=== PATIENT | male | born 1965 | race Caucasian/White ===

== ENCOUNTER 2017-05-31 15:03 | Inpatient (IN) | payer MEDICARE ==
--- NOTE | 2017-05-31 15:26 | ED Physician Chart ---
ED Chief Complaint/HPI - Patient Information Date Seen:: 05/31/17 Time Seen:: 15:15 Chief Complaint:: agitation History of Present Illness:: According to the transfer sheet patient has been exhibiting aggressive and disruptive behavior with agitation at his fdc facility. Allergies:: Allergies Allergy/AdvReac Type Severity Reaction Status Date / Time No Known Allergies Allergy Verified 05/31/17 15:13 Vitals:: Vital Signs - 8 hr 05/31/17 15:14 Temp 97.6 F HR 90 RR 16 BP 128/85 O2 Sat % 97 Historian:: Patient Review:: Nurse's Note Reviewed, Transfer documents Reviewed ED Review of Systems - Review of Systems General/Constitutional: No fever, No chills Skin: No skin lesions Head: No headache Eyes: No loss of vision ENT: No earache Neck: No neck pain Cardio Vascular: No chest pain Pulmonary: No SOB GI: No nausea, No vomiting, No diarrhea G/U: No dysuria Musculoskeletal: No bone or joint pain Endocrine: No polyuria Psychiatric: Prior psych history Allergic/Immuno: No urticaria Neurological: No syncope, No focal symptoms ED Past Medical History - Past Medical History Past Medical History: HTN, Dyslipidemia, PUD/GERD, Other (anxiety; major depression and chronic pain syndrome; multiple sclerosis; hyperlipidemia; schizoaffective disorder) Family History: HTN Social History: Non Smoker, No Alcohol Surgical History: other (circumcision only) Psychiatricy History: Other (major depression; schizoaffective disorder) Medication: Reviewed Family Medical History - Family Member Mother History Unknown: Yes Ethnicity: Living Status: Unknown ED Physical Exam - Physical Examination General/Constitutional: Well-developed, well-nourished, Alert, No distress Other Gen/Cons comments:: Patient alert and oriented to the exact date Head: Atraumatic Eyes: Lids, conjuctiva normal, PERRL Skin: Nl inspection ENMT: External ears, nose nl, Lips, teeth, gums nl, Oropharynx nl Neck: No nuchal rigidity Respiratory: Nl effort/Exclusion, Clear to Auscultation, No Wheeze/Rhonchi/Rales Cardio Vascular: RRR, No murmur, gallop, rubs, NL S1 S2 GI: No tenderness/rebounding/guarding, No organomegaly, No hernia, Nondistended , No mass/bruits, No McBurney tenderness : No CVA tenderness Extremities: Normal digits & nails Neuro/Psych: No focal deficits ED Labs/Radiology/EKG Results - Lab Results Results: Laboratory Results - last 24 hr 05/31/17 05/31/17 05/31/17 15:32 15:32 15:32 WBC 10.1 RBC 5.69 Hgb 15.5 Hct 48.0 MCV 84.2 MCH 27.2 MCHC Differential 32.3 RDW 13.8 Plt Count 310 MPV 8.5 Neutrophils % 81.3 H Lymphocytes % 11.7 L Monocytes % 3.6 Eosinophils % 3.4 Basophils % 0.0 Sodium 137 Potassium 4.0 Chloride 104 Carbon Dioxide 29.7 Anion Gap 7.3 BUN 19 Creatinine 0.9 Est GFR ( Amer) > 60.0 Est GFR (Non-Af Amer) > 60.0 BUN/Creatinine Ratio 21.1 Glucose 127 H Calcium 9.1 Total Bilirubin 0.5 AST 13 ALT 14 Alkaline Phosphatase 61 Total Protein 6.9 Albumin 4.0 L Globulin 2.9 Albumin/Globulin Ratio 1.4 Triglycerides 67 Cholesterol 169 LDL Cholesterol Direct 122 HDL Cholesterol 41 TSH 0.74 Acetaminophen < 10.0 L Ethyl Alcohol < 10 - EKG Interpretations Rate & Rhythm: NSR with a rate of 84 [place]: left axis deviation ED Septic Shock - . Is Septic Shock (SBP<90, OR Lactate>4 mmol\L) present?: No - <6hrs of presentation: Vital Signs: Vital Signs - 8 hr 05/31/17 15:14 Temp 97.6 F HR 90 RR 16 BP 128/85 O2 Sat % 97 ED Reassessment (Disposition) - Reassessment Reassessment Condition:: Unchanged - Diagnosis Diagnosis:: Schizoaffective disorder; aggressive and disruptive behavior - Patient Disposition Admitted to:: [facility] Admitting Medical Physician:: Dereck Ruiz Admitting Psych Physician:: Hossein Quintanilla ED Discharge Plan - Patient Disposition Instructions: Psychosis
[2017-05-31 15:40] LABS: % EOSINOPHILS 3.4 % (0.0-5.0); % LYMPHOCYTES 11.7 % (20.0-50.0); % MONOCYTES 3.6 % (2.0-10.0); % NEUTROPHILS 81.3 % (40.0-80.0); EOSINOPHILE ABSOLUTE 0.3 Th/cmm (0.1-0.4); HEMOGLOBIN 15.5 gm/dL (12-16); LYMPHOCYTE ABSOLUTE 1.2 Th/cmm (1.5-3.0); MEAN CELL VOLUME 84.2 fl (80-99); MEAN CORPUSCULAR HEMOGLOBIN 27.2 pg (26.0-30.0); MEAN CORPUSCULAR HGB CONC 32.3 pg (28.0-36.0); MEAN PLATELET VOLUME 8.5 fl; MONOCYTE ABSOLUTE 0.4 Th/cmm (0.3-1.0); NEUTROPHILE ABSOLUTE 8.2 Th/cmm (1.8-8.0); PLATELET COUNT 310 Th/cmm (150-400); RED BLOOD COUNT 5.69 Mil/cmm (4.30-5.70); RED CELL DISTRIBUTION WIDTH 13.8 % (11.5-20.0); WHITE BLOOD COUNT 10.1 Th/cmm (4.8-10.8)
[2017-05-31 16:08] LABS: ACETAMINOPHEN < 10.0 ug/mL (10.0-30.0); ALB/GLOB RATIO 1.4 (1.0-1.8); ALKALINE PHOSPHATASE 61 U/L (34-104); ANION GAP 7.3 (7.0-16.0); BILIRUBIN,TOTAL 0.5 mg/dL (0.3-1.0); BUN - UREA NITROGEN 19 mg/dL (7-25); CALCIUM SERUM 9.1 mg/dL (8.6-10.3); CARBON DIOXIDE 29.7 mEq/L (21.0-31.0); CHLORIDE 104 mEq/L (98-107); CHOLESTEROL 169 mg/dL (<200); CREATININE - SERUM 0.9 mg/dL (0.7-1.3); GFR AFRICAN-AMERICAN > 60.0 ml/min (>90); GFR NON AFRICAN-AMERICAN > 60.0 ml/min; GLUCOSE 127 mg/dL (70-105); HDL -HIGH DENSITY LIPOPROTEIN 41 mg/dL (23-92); SGOT 13 U/L (13-39); SGPT/ALT 14 U/L (7-52); SODIUM SERUM 137 mEq/L (136-145); TOTAL PROTEIN,SERUM 6.9 gm/dL (6.0-8.3); TRIGLYCERIDES 67 mg/dL (<150)
[2017-05-31 17:49] LABS: SALICYLATES (ASPIRIN) < 25.0 mg/L (30.0-100.0)
[2017-05-31] MEDS ORDERED: Maalox 30 mL Cup PO PRN (21:12)
[2017-05-31] MEDS ORDERED: Non-Formulary Item 1 EA (Acetaminophen [8 Hour] 650 MG) PO SCH (21:15)
[2017-06-01 10:40] LABS: A1C % 5.9 % (4.0-6.0)
--- NOTE | 2017-06-01 12:54 | History and Physical ---
History of Present Illness - HPI Chief Complaint: AGRESSIVE BEHAVIOR HPI: THIS IS A 51 YEAR OLD MALE WHO IS A ALF RESIDENT [facility] DUE TO AGRESSIVE BEHAVIOR TOWARDS NURSING STAFF. Vital Signs: Last Vital Signs Temp 97.6 F 06/01/17 11:42 Pulse 83 06/01/17 11:42 Resp 17 06/01/17 11:42 BP 96/67 06/01/17 11:42 Pulse Ox 95 06/01/17 11:42 Past Medical History Other History: HTN, Dyslipidemia, PUD/GERD,anxiety; major depression and chronic pain syndrome ; multiple sclerosis; hyperlipidemia; schizoaffective disorder Family Medical History - Family Member Mother History Unknown: Yes Ethnicity: Living Status: Unknown Social History Smoke: No Alcohol: None Drugs: None Lives: Snf Domestic Violence: Negative - Medications Home Medications: Home Medication Medication Instructions Recorded Type Acetaminophen 325 mg PO Q4H PRN 05/31/17 History Acetaminophen [8 Hour] 650 mg PO Q4H 05/31/17 History Aspirin EC [Ecotrin] 81 mg PO DAILY 05/31/17 History Baclofen [Lioresal*] 10 mg PO Q6H PRN 05/31/17 History Enalapril Maleate [Vasotec*] 20 mg PO DAILY 05/31/17 History Escitalopram Oxalate [Lexapro] 20 mg PO DAILY 05/31/17 History Famotidine [Pepcid] 20 mg PO DAILY 05/31/17 History Mag Hydrox/Al Hydrox/Simeth 30 ml PO Q4H PRN 05/31/17 History [Aluminum & Magnesium Hydroxide/Simethicone 35] Naproxen 250 mg PO Q4H PRN 05/31/17 History Trazodone HCl 100 mg PO HS 05/31/17 History - Allergies Allergies/Adverse Reactions: Allergies Allergy/AdvReac Type Severity Reaction Status Date / Time No Known Allergies Allergy Verified 05/31/17 15:13 Review of Systems - Review of Systems Constitutional: Report: No Significant Eyes: Report: No Significant ENT: Report: No Significant Respiratory: Report: No Significant Cardiovascular: Report: No Significant Gastrointestinal: Report: No Significant Genitourinary: Report: No Significant Musculoskeletal: Report: No Significant Skin: Report: No Significant Neurological: Report: No Significant Physical Exam - Physical Exam HEENT: Report: Ears Nose Throat within normal limits Neck: Report: Within normal limits Cardiovascular Systems: Report: +s1/s2 noted Respiratory: Report: Breath Sounds are within normal limits Abdomen: Report: Non-tender to palpation Back: Report: Inspection of back is within normal limits. Extremities: Report: Non-tender to palpation. Skin: Report: Color of skin is within normal limits Neuro/Psych: Report: Mood affect is within normal limits - Assessment Assessment: Current Active Problems Problem Status Onset DISRUPTIVE AND AGITATED BEHAVIOR Acute HTN, Dyslipidemia, PUD/GERD, anxiety; major depression and chronic pain syndrome ; multiple sclerosis; hyperlipidemia; schizoaffective disorder - Plan Plan: PSYCH FOLLOW UP CONTINUE CURRENT ORDERS
== END 2017-06-01 19:57 | DRG 60 ==
LOC: ER 15:03 → GERO 17:49 → UNDOADMIN 17:49 → MSI 20:25
PROVIDERS: ADMIT Internal Medicine; ATTEND Internal Medicine
DX: G35 Multiple sclerosis (principal); F25.9 Schizoaffective disorder, unspecified; I10 Essential (primary) hypertension; E78.5 Hyperlipidemia, unspecified; K21.9 Gastro-esophageal reflux disease without esophagitis; F32.9 Major depressive disorder, single episode, unspecified; F41.9 Anxiety disorder, unspecified; G89.4 Chronic pain syndrome; Z82.49 Family history of ischemic heart disease and other diseases of the circulatory system
CPT/HCPCS: 36415-UA; 80053-TC; 80061-TC; 80320-TC; 80329-TC; 82948-90; 83036-90; 84443-TC; 85025-TC; 86592-TC; 93005

== ENCOUNTER 2017-06-01 20:05 | Inpatient (IN) | payer MEDICARE ==
[2017-06-01] MEDS ORDERED: Maalox 30 mL Cup PO PRN (20:37)
[2017-06-01] MEDS ORDERED: Non-Formulary Item 1 EA (Acetaminophen [8 Hour] 650 MG) PO SCH (20:45)
[2017-06-01 22:49] VITALS: BP 119/81
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
--- NOTE | 2017-06-02 13:10 | History & Physical ---
ADMIT DATE: 06/02/2017 CHIEF COMPLAINT: Aggressive behavior. HISTORY OF PRESENT ILLNESS: This is a 51-year-old male, who was admitted from the Med/Surg unit to Psychiatric unit due to aggressive behaviors. REVIEW OF SYSTEMS: GENERAL: This is a 51-year-old male that appears as stated. Denies any fever or chills. HEAD: Denies any headache. Denies any dizziness. EYES: Denies any blurring of vision. Denies any eye pain. NECK: Denies any neck pain. Denies nuchal rigidity. CHEST: Denies any palpitation. Denies any chest pain. PULMONARY: Denies coughing. Denies shortness of breath. GASTROINTESTINAL: Denies abdominal pain. Denies diarrhea. Denies constipation. MUSCULOSKELETAL: Denies joint pain. Denies muscle pain. PAST MEDICAL HISTORY: Includes osteoarthritis and multiple sclerosis. FAMILY HISTORY: Unremarkable. SOCIAL HISTORY: The patient lived in a fpc facility prior to hospitalization. PAST SURGICAL HISTORY: Unremarkable. PHYSICAL EXAMINATION: VITAL SIGNS: Temperature 98.5, heart rate of 88, blood pressure 116/73, respirations of 20, and 99% on room air. HEAD: Atraumatic, normocephalic. EYES: Bilateral conjunctivae are clear. Bilateral pupils are equally round and reactive. NECK: Supple. No JVD. CARDIOVASCULAR: S1 and S2 without murmur. PULMONARY: Clear to auscultation. GASTROINTESTINAL: Soft and nontender without guarding. Positive bowel sounds. MUSCULOSKELETAL: No clubbing and no cyanosis noted. ASSESSMENT: 1. Major depression disorder. 2. Rule out bipolar disorder. 3. Hypotension. 4. Multiple sclerosis. 5. Osteoarthritis. 6. Gastroesophageal reflux disease. PLAN: We will admit the patient inpatient to Psychiatric Unit. We will follow up with psychiatrist to monitor the patient's condition and behavior. We will do medication reconciliation accordingly. Treatment plans were discussed with the patient's nurse. Treatment plans were discussed with Dr. Ruiz. JOB# [id number]
--- NOTE | 2017-06-03 11:10 | General Progress Note ---
Subjective - Review of Systems Events since last encounter: admitted for aggressive behavior patient irritable Objective - Physical Exam Vitals and I&O: Vital Signs Temp 98.1 F 06/03/17 06:14 Pulse 72 06/03/17 08:59 Resp 20 06/03/17 06:14 BP 123/91 06/03/17 08:59 Pulse Ox 97 06/03/17 06:14 Intake & Output 06/02/17 06/03/17 06/03/17 18:59 06:59 18:59 Intake Total 1000 480 Balance 1000 480 Intake: Oral 1000 480 Other: # Voids 3 1 # Bowel Movements 1 Active Medications: Current Medications Acetaminophen (Tylenol) 650 mg PO Q6H PRN PRN Reason: Pain (Mild) Stop: 08/01/17 09:48 Aripiprazole (Abilify) 2 mg PO DAILY [facility] PRN Reason: Protocol Stop: 08/01/17 08:59 Last Admin: 06/03/17 09:00 Dose: 2 mg Aspirin (Ecotrin) 81 mg PO DAILY [facility] Stop: 08/01/17 08:59 Last Admin: 06/03/17 09:00 Dose: 81 mg Baclofen (Lioresal) 10 mg PO Q6H PRN PRN Reason: MUSCLE SPASMS Stop: 07/31/17 20:36 Enalapril Maleate (Vasotec) 20 mg PO DAILY [facility] Stop: 08/01/17 08:59 Last Admin: 06/03/17 08:59 Dose: 20 mg Escitalopram Oxalate (Lexapro) 20 mg PO DAILY [facility] PRN Reason: Protocol Stop: 08/01/17 08:59 Last Admin: 06/03/17 09:00 Dose: 20 mg Famotidine (Pepcid) 20 mg PO DAILY [facility] Stop: 08/01/17 08:59 Last Admin: 06/03/17 09:00 Dose: 20 mg Naproxen (Naprosyn) 250 mg PO BID PRN PRN Reason: Severe Pain Stop: 07/31/17 20:36 Trazodone HCl (Desyrel) 100 mg PO HS [facility]ENDA PRN Reason: Protocol Stop: 07/31/17 20:59 Last Admin: 06/02/17 21:53 Dose: 100 mg General: No acute distress HEENT: Atraumatic Neck: Supple Cardiovascular: Regular rate, Normal S1 Lungs: Clear to auscultation Assessment/Plan - Problem List Patient Problems: All Active Problems GERD (gastroesophageal reflux disease) (Acute) K21.9 Hypotension (Acute) Major depressive disorder (Acute) F32.9 Multiple sclerosis (Acute) G35 Osteoarthritis (Acute) M19.90 DISRUPTIVE AND AGITATED BEHAVIOR (Acute) - Plan Plan: as per psych will monitor
--- NOTE | 2017-06-04 09:22 | Psychosocial Evaluation ---
DATE OF SERVICE: The patient was seen and evaluated. The patient's chart reviewed. This is Dr. Mclean, covering for Dr. Quintanilla, doing an initial psychiatric consultation. CHIEF COMPLAINT: I do not want to tell you there is something bad. HISTORY OF PRESENT ILLNESS: The patient is a 51-year-old male who was transferred here from a care home facility after becoming more disruptive and very aggressive behavior. The patient himself is a very poor historian and at times find himself disorganized. He continues to perseverate about "he did something bad where he was at, but unable to disclose what that" bad situation is. He is slightly guarded and minimizing. He does report that in the past he has been depressed, easily irritable and easily agitated, but does not give much more beyond that. Denies any illicit drug use. PAST MEDICAL HISTORY: Includes osteoarthritis, multiple sclerosis. PAST PSYCHIATRIC HISTORY: History of depression. SOCIAL HISTORY: Currently lives in a care home. PAST SURGICAL HISTORY: Unremarkable. ALLERGIES TO MEDICATIONS: NKDA. LEGAL HISTORY: None. PREVIOUS INPATIENT OUTPATIENT HOSPITALIZATION: Unable to elaborate. He is guarded. Denies any previous. He does report outpatient treatment in the past. CURRENT MEDICATIONS: Include Lexapro 20 mg at nighttime, trazodone 100 mg at nighttime and recently augmented with Abilify from the consultation. MENTAL STATUS EXAMINATION: He is in his room, guarded, minimizing, ruminating about he did something bad, but disengaged and easily agitated. Mildly suspicious. Denies any auditory or visual hallucinations. Distraught. Limited insight, judgment and impulse control. IMMEDIATE MEMORY: Can give date and week. . Attention span he was able to name order. Unable to spell the word backwards when he was asked. STRENGTHS: poor coping skills. PRIMARY DIAGNOSES: Major depressive disorder, severe, rule out psychosis. SECONDARY DIAGNOSES: None. MEDICAL DIAGNOSIS: As noted above. Full physical examination pending. ACUTE COGNITIVE IMPAIRMENT: Severe. PHYSICAL PAIN LIMITATIONS: None, 0-10 pain reported by the patient. ASSESSMENT AND PLAN: The patient is a 51-year-old male who was initially brought in here for agitation and disturbance in behavior, unclear how much of this patient. Secondary behavior is triggered by suspicious. He presents guarded and minimizing and ruminating about "he did something bad". Further collateral baseline information is needed. I agree with the recent initiation of Abilify 2 mg and continue with Lexapro 20 milligrams, will continue to get more collateral. Estimated stay between 5-10 days. DISCHARGE CRITERIA: The patient is to demonstrate euthymic mood, no suicidal or homicidal ideation, good psychiatric followup, and good peer interaction. [facility]# [id number]
--- NOTE | 2017-06-04 09:28 | Progress Notes ---
DATE: SUBJECTIVE: The patient was seen and evaluated. The patient's chart reviewed. Overnight, nursing staff reported the patient mostly guarded in his room. Today, on [id number] evaluation, the patient continues to relate that he did something bad that he does not want to disclose what exactly what he did, very guarded, minimizing. Denies any side effects of medications. EXAMINATION: , ruminating, sad, depressed. ASSESSMENT AND PLAN: The patient continues to ruminate, distraught, overwhelmed, guarded, minimizing, continues to be at high risk. We will continue baseline information. JOB# [id number]
--- NOTE | 2017-06-04 11:44 | Internal Medicine Prog Note ---
Internal Medicine Subjective - Subjective Service Date: 06/04/17 Patient seen and examined:: with staff Patient is:: awake Per staff patient has:: tolerating meds Internal Medicine Objective - Physical Exam Vitals and I&O: Vital Signs Temp 98.2 F 06/04/17 06:48 Pulse 78 06/04/17 09:05 Resp 19 06/04/17 06:48 BP 144/92 06/04/17 09:05 Pulse Ox 98 06/04/17 06:48 Intake & Output 06/03/17 06/04/17 06/04/17 18:59 06:59 18:59 Intake Total 360 60 Balance 360 60 Intake: Oral 360 60 Other: # Voids 1 1 # Bowel Movements 1 0 Active Medications: Current Medications Acetaminophen (Tylenol) 650 mg PO Q6H PRN PRN Reason: Pain (Mild) Stop: 08/01/17 09:48 Aripiprazole (Abilify) 2 mg PO DAILY BRENDA PRN Reason: Protocol Stop: 08/01/17 08:59 Last Admin: 06/04/17 09:05 Dose: 2 mg Aspirin (Ecotrin) 81 mg PO DAILY [facility] Stop: 08/01/17 08:59 Last Admin: 06/04/17 09:05 Dose: 81 mg Baclofen (Lioresal) 10 mg PO Q6H PRN PRN Reason: MUSCLE SPASMS Stop: 07/31/17 20:36 Enalapril Maleate (Vasotec) 20 mg PO DAILY [facility] Stop: 08/01/17 08:59 Last Admin: 06/04/17 09:05 Dose: 20 mg Escitalopram Oxalate (Lexapro) 20 mg PO DAILY [facility]ENDA PRN Reason: Protocol Stop: 08/01/17 08:59 Last Admin: 06/04/17 09:05 Dose: 20 mg Famotidine (Pepcid) 20 mg PO DAILY [facility] Stop: 08/01/17 08:59 Last Admin: 06/04/17 09:05 Dose: 20 mg Naproxen (Naprosyn) 250 mg PO BID PRN PRN Reason: Severe Pain Stop: 07/31/17 20:36 Trazodone HCl (Desyrel) 100 mg PO HS [facility] PRN Reason: Protocol Stop: 07/31/17 20:59 Last Admin: 06/03/17 20:16 Dose: 100 mg General: alert HEENT: NC/AT, PERRLA Neck: Supple Lungs: CTAB Cardiovascular: RRR, Normal S1, Normal S2, without murmur Abdomen: soft, non-tender, non-distended, positive bowel sound Neurological: alert Internal Medicine Assmt/Plan - Assessment Assessment: GERD (gastroesophageal reflux disease) (Acute) K21.9 Major depressive disorder (Acute) F32.9 Multiple sclerosis (Acute) G35 Osteoarthritis (Acute) M19.90 DISRUPTIVE AND AGITATED BEHAVIOR (Acute) - Plan Plan: safety precautions continue current plan of care
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
[2017-06-05 08:46] LABS: % EOSINOPHILS 3.5 % (0.0-5.0); % LYMPHOCYTES 28.6 % (20.0-50.0); % MONOCYTES 4.6 % (2.0-10.0); % NEUTROPHILS 63.3 % (40.0-80.0); EOSINOPHILE ABSOLUTE 0.3 Th/cmm (0.1-0.4); HEMATOCRIT 46.6 % (41.0-60); LYMPHOCYTE ABSOLUTE 2.1 Th/cmm (1.5-3.0); MEAN CELL VOLUME 84.2 fl (80-99); MEAN CORPUSCULAR HEMOGLOBIN 27.1 pg (26.0-30.0); MEAN CORPUSCULAR HGB CONC 32.2 pg (28.0-36.0); MEAN PLATELET VOLUME 8.8 fl; MONOCYTE ABSOLUTE 0.3 Th/cmm (0.3-1.0); NEUTROPHILE ABSOLUTE 4.6 Th/cmm (1.8-8.0); PLATELET COUNT 312 Th/cmm (150-400); RED BLOOD COUNT 5.53 Mil/cmm (4.30-5.70); RED CELL DISTRIBUTION WIDTH 13.6 % (11.5-20.0)
[2017-06-05 08:55] LABS: WHITE BLOOD COUNT 7.3 Th/cmm (4.8-10.8)
[2017-06-05 09:02] LABS: ANION GAP 8.3 (7.0-16.0); BUN - UREA NITROGEN 17 mg/dL (7-25); CALCIUM SERUM 9.3 mg/dL (8.6-10.3); CARBON DIOXIDE 29.8 mEq/L (21.0-31.0); CHLORIDE 103 mEq/L (98-107); CREATININE - SERUM 0.9 mg/dL (0.7-1.3); GFR AFRICAN-AMERICAN > 60.0 ml/min (>90); GFR NON AFRICAN-AMERICAN > 60.0 ml/min; GLUCOSE 124 mg/dL (70-105); POTASSIUM SERUM 4.1 mEq/L (3.5-5.1); SODIUM SERUM 137 mEq/L (136-145)
--- NOTE | 2017-06-05 16:20 | General Progress Note ---
Subjective - Review of Systems Events since last encounter: patient irritable confused in no distress Objective - Results Result Diagrams: 06/05/17 08:30 06/05/17 08:30 Recent Labs: Laboratory Last Values WBC 7.3 Th/cmm (4.8-10.8) D 06/05/17 08:30 RBC 5.53 Mil/cmm (4.30-5.70) 06/05/17 08:30 Hgb 15.0 gm/dL (12-16) 06/05/17 08:30 Hct 46.6 % (41.0-60) 06/05/17 08:30 MCV 84.2 fl (80-99) 06/05/17 08:30 MCH 27.1 pg (26.0-30.0) 06/05/17 08:30 MCHC Differential 32.2 pg (28.0-36.0) 06/05/17 08:30 RDW 13.6 % (11.5-20.0) 06/05/17 08:30 Plt Count 312 Th/cmm (150-400) 06/05/17 08:30 MPV 8.8 fl 06/05/17 08:30 Neutrophils % 63.3 % (40.0-80.0) 06/05/17 08:30 Lymphocytes % 28.6 % (20.0-50.0) 06/05/17 08:30 Monocytes % 4.6 % (2.0-10.0) 06/05/17 08:30 Eosinophils % 3.5 % (0.0-5.0) 06/05/17 08:30 Basophils % 0.0 % (0.0-2.0) 06/05/17 08:30 Sodium 137 mEq/L (136-145) 06/05/17 08:30 Potassium 4.1 mEq/L (3.5-5.1) 06/05/17 08:30 Chloride 103 mEq/L (98-107) 06/05/17 08:30 Carbon Dioxide 29.8 mEq/L (21.0-31.0) 06/05/17 08:30 Anion Gap 8.3 (7.0-16.0) 06/05/17 08:30 BUN 17 mg/dL (7-25) 06/05/17 08:30 Creatinine 0.9 mg/dL (0.7-1.3) 06/05/17 08:30 Est GFR ( Amer) > 60.0 ml/min (>90) 06/05/17 08:30 Est GFR (Non-Af Amer) > 60.0 ml/min 06/05/17 08:30 BUN/Creatinine Ratio 18.9 06/05/17 08:30 Glucose 124 mg/dL (70-105) H 06/05/17 08:30 Calcium 9.3 mg/dL (8.6-10.3) 06/05/17 08:30 - Physical Exam Vitals and I&O: Vital Signs Temp 98.6 F 06/05/17 06:56 Pulse 87 06/05/17 10:57 Resp 20 06/05/17 06:56 BP 127/79 06/05/17 10:57 Pulse Ox 100 06/05/17 06:56 Intake & Output 06/04/17 06/05/17 06/05/17 18:59 06:59 18:59 Intake Total 360 320 Balance 360 320 Intake: Oral 360 320 Other: # Voids 2 1 # Bowel Movements 1 0 Active Medications: Current Medications Acetaminophen (Tylenol) 650 mg PO Q6H PRN PRN Reason: Pain (Mild) Stop: 08/01/17 09:48 Aripiprazole (Abilify) 2 mg PO DAILY [facility] PRN Reason: Protocol Stop: 08/01/17 08:59 Last Admin: 06/05/17 10:59 Dose: 2 mg Aspirin (Ecotrin) 81 mg PO DAILY [facility] Stop: 08/01/17 08:59 Last Admin: 06/05/17 10:59 Dose: 81 mg Baclofen (Lioresal) 10 mg PO Q6H PRN PRN Reason: MUSCLE SPASMS Stop: 07/31/17 20:36 Enalapril Maleate (Vasotec) 20 mg PO DAILY [facility] Stop: 08/01/17 08:59 Last Admin: 06/05/17 10:57 Dose: 20 mg Escitalopram Oxalate (Lexapro) 20 mg PO DAILY [facility] PRN Reason: Protocol Stop: 08/01/17 08:59 Last Admin: 06/05/17 10:59 Dose: 20 mg Famotidine (Pepcid) 20 mg PO DAILY [facility] Stop: 03/07/18 08:59 Last Admin: 06/05/17 10:59 Dose: 20 mg Naproxen (Naprosyn) 250 mg PO BID PRN PRN Reason: Severe Pain Stop: 07/31/17 20:36 Trazodone HCl (Desyrel) 100 mg PO HS [facility]ENDA PRN Reason: Protocol Stop: 07/31/17 20:59 Last Admin: 06/04/17 20:28 Dose: 100 mg General: No acute distress HEENT: Atraumatic Neck: Supple Cardiovascular: Regular rate, Normal S1 Lungs: Clear to auscultation Assessment/Plan - Problem List Patient Problems: All Active Problems GERD (gastroesophageal reflux disease) (Acute) K21.9 Hypotension (Acute) Major depressive disorder (Acute) F32.9 Multiple sclerosis (Acute) G35 Osteoarthritis (Acute) M19.90 DISRUPTIVE AND AGITATED BEHAVIOR (Acute) - Plan Plan: as per psych will monitor
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
--- NOTE | 2017-06-06 09:12 | General Progress Note ---
Subjective - Review of Systems Events since last encounter: patient irritable confused Objective - Results Result Diagrams: 06/05/17 08:30 06/05/17 08:30 Recent Labs: Laboratory Last Values WBC 7.3 Th/cmm (4.8-10.8) D 06/05/17 08:30 RBC 5.53 Mil/cmm (4.30-5.70) 06/05/17 08:30 Hgb 15.0 gm/dL (12-16) 06/05/17 08:30 Hct 46.6 % (41.0-60) 06/05/17 08:30 MCV 84.2 fl (80-99) 06/05/17 08:30 MCH 27.1 pg (26.0-30.0) 06/05/17 08:30 MCHC Differential 32.2 pg (28.0-36.0) 06/05/17 08:30 RDW 13.6 % (11.5-20.0) 06/05/17 08:30 Plt Count 312 Th/cmm (150-400) 06/05/17 08:30 MPV 8.8 fl 06/05/17 08:30 Neutrophils % 63.3 % (40.0-80.0) 06/05/17 08:30 Lymphocytes % 28.6 % (20.0-50.0) 06/05/17 08:30 Monocytes % 4.6 % (2.0-10.0) 06/05/17 08:30 Eosinophils % 3.5 % (0.0-5.0) 06/05/17:30 Basophils % 0.0 % (0.0-2.0) 06/05/17 08:30 Sodium 137 mEq/L (136-145) 06/05/17 08:30 Potassium 4.1 mEq/L (3.5-5.1) 06/05/17 08:30 Chloride 103 mEq/L (98-107) 06/05/17 08:30 Carbon Dioxide 29.8 mEq/L (21.0-31.0) 06/05/17 08:30 Anion Gap 8.3 (7.0-16.0) 06/05/17 08:30 BUN 17 mg/dL (7-25) 06/05/17 08:30 Creatinine 0.9 mg/dL (0.7-1.3) 06/05/17 08:30 Est GFR ( Amer) > 60.0 ml/min (>90) 06/05/17 08:30 Est GFR (Non-Af Amer) > 60.0 ml/min 06/05/17 08:30 BUN/Creatinine Ratio 18.9 06/05/17 08:30 Glucose 124 mg/dL (70-105) H 06/05/17 08:30 Calcium 9.3 mg/dL (8.6-10.3) 06/05/17 08:30 - Physical Exam Vitals and I&O: Vital Signs Temp 97.8 F 06/06/17 06:18 Pulse 77 06/06/17 06:18 Resp 20 06/06/17 06:18 BP 149/82 06/06/17 06:18 Pulse Ox 99 06/06/17 06:18 Intake & Output 06/05/17 06/06/17 06/06/17 18:59 06:59 18:59 Intake Total 550 Balance 550 Intake: Oral 550 Other: # Voids 1 # Bowel Movements 0 Active Medications: Current Medications Acetaminophen (Tylenol) 650 mg PO Q6H PRN PRN Reason: Pain (Mild) Stop: 08/01/17 09:48 Aripiprazole (Abilify) 15 mg PO DAILY [facility] PRN Reason: Protocol Stop: 08/01/17 08:59 Aspirin (Ecotrin) 81 mg PO DAILY [facility] Stop: 08/01/17 08:59 Last Admin: 06/05/17 10:59 Dose: 81 mg Baclofen (Lioresal) 10 mg PO Q6H PRN PRN Reason: MUSCLE SPASMS Stop: 07/31/17 20:36 Enalapril Maleate (Vasotec) 20 mg PO DAILY [facility] Stop: 08/01/17 08:59 Last Admin: 06/05/17 10:57 Dose: 20 mg Escitalopram Oxalate (Lexapro) 20 mg PO DAILY [facility] PRN Reason: Protocol Stop: 08/01/17 08:59 Last Admin: 06/05/17 10:59 Dose: 20 mg Famotidine (Pepcid) 20 mg PO DAILY [facility] Stop: 08/01/17 08:59 Last Admin: 06/05/17 10:59 Dose: 20 mg Naproxen (Naprosyn) 250 mg PO BID PRN PRN Reason: Severe Pain Stop: 07/31/17 20:36 Trazodone HCl (Desyrel) 100 mg PO HS [facility] PRN Reason: Protocol Stop: 07/31/17 20:59 Last Admin: 06/05/17 20:26 Dose: 100 mg General: No acute distress HEENT: Atraumatic Neck: Supple Cardiovascular: Regular rate, Normal S1 Lungs: Clear to auscultation Assessment/Plan - Problem List Patient Problems: All Active Problems GERD (gastroesophageal reflux disease) (Acute) K21.9 Hypotension (Acute) Major depressive disorder (Acute) F32.9 Multiple sclerosis (Acute) G35 Osteoarthritis (Acute) M19.90 DISRUPTIVE AND AGITATED BEHAVIOR (Acute) - Plan Plan: as per psych will monitor
--- NOTE | 2017-06-07 08:41 | General Progress Note ---
Subjective - Review of Systems Events since last encounter: still confused Objective - Results Result Diagrams: 06/05/17 08:30 06/05/17 08:30 Recent Labs: Laboratory Last Values WBC 7.3 Th/cmm (4.8-10.8) D 06/05/17 08:30 RBC 5.53 Mil/cmm (4.30-5.70) 06/05/17 08:30 Hgb 15.0 gm/dL (12-16) 06/05/17 08:30 Hct 46.6 % (41.0-60) 06/05/17 08:30 MCV 84.2 fl (80-99) 06/05/17 08:30 MCH 27.1 pg (26.0-30.0) 06/05/17 08:30 MCHC Differential 32.2 pg (28.0-36.0) 06/05/17 08:30 RDW 13.6 % (11.5-20.0) 06/05/17 08:30 Plt Count 312 Th/cmm (150-400) 06/05/17 08:30 MPV 8.8 fl 06/05/17 08:30 Neutrophils % 63.3 % (40.0-80.0) 06/05/17 08:30 Lymphocytes % 28.6 % (20.0-50.0) 06/05/17 08:30 Monocytes % 4.6 % (2.0-10.0) 06/05/17 08:30 Eosinophils % 3.5 % (0.0-5.0) 06/05/17:30 Basophils % 0.0 % (0.0-2.0) 06/05/17 08:30 Sodium 137 mEq/L (136-145) 06/05/17 08:30 Potassium 4.1 mEq/L (3.5-5.1) 06/05/17 08:30 Chloride 103 mEq/L (98-107) 06/05/17 08:30 Carbon Dioxide 29.8 mEq/L (21.0-31.0) 06/05/17 08:30 Anion Gap 8.3 (7.0-16.0) 06/05/17 08:30 BUN 17 mg/dL (7-25) 06/05/17 08:30 Creatinine 0.9 mg/dL (0.7-1.3) 06/05/17 08:30 Est GFR ( Amer) > 60.0 ml/min (>90) 06/05/17 08:30 Est GFR (Non-Af Amer) > 60.0 ml/min 06/05/17 08:30 BUN/Creatinine Ratio 18.9 06/05/17 08:30 Glucose 124 mg/dL (70-105) H 06/05/17 08:30 Calcium 9.3 mg/dL (8.6-10.3) 06/05/17 08:30 - Physical Exam Vitals and I&O: Vital Signs Temp 97.7 F 06/07/17 06:49 Pulse 75 06/07/17 08:11 Resp 20 06/07/17 06:49 BP 151/92 06/07/17 08:11 Pulse Ox 97 06/07/17 06:49 Intake & Output 06/06/17 06/07/17 06/07/17 18:59 06:59 18:59 Intake Total 800 120 Balance 800 120 Intake: Oral 800 120 Other: # Voids 3 3 # Bowel Movements 1 Active Medications: Current Medications Acetaminophen (Tylenol) 650 mg PO Q6H PRN PRN Reason: Pain (Mild) Stop: 08/01/17 09:48 Aripiprazole (Abilify) 15 mg PO DAILY [facility] PRN Reason: Protocol Stop: 08/01/17 08:59 Last Admin: 06/07/17 08:10 Dose: 15 mg Aspirin (Ecotrin) 81 mg PO DAILY [facility] Stop: 08/01/17 08:59 Last Admin: 06/07/17 08:10 Dose: 81 mg Baclofen (Lioresal) 10 mg PO Q6H PRN PRN Reason: MUSCLE SPASMS Stop: 07/31/17 20:36 Enalapril Maleate (Vasotec) 20 mg PO DAILY [facility] Stop: 08/01/17 08:59 Last Admin: 06/07/17 08:11 Dose: 20 mg Escitalopram Oxalate (Lexapro) 20 mg PO DAILY [facility] PRN Reason: Protocol Stop: 08/01/17 08:59 Last Admin: 06/07/17 08:10 Dose: 20 mg Famotidine (Pepcid) 20 mg PO DAILY [facility] Stop: 08/01/17 08:59 Last Admin: 06/07/17 08:11 Dose: 20 mg Naproxen (Naprosyn) 250 mg PO BID PRN PRN Reason: Severe Pain Stop: 07/31/17 20:36 Trazodone HCl (Desyrel) 100 mg PO HS [facility] PRN Reason: Protocol Stop: 07/31/17 20:59 Last Admin: 06/06/17 21:32 Dose: 100 mg General: No acute distress HEENT: Atraumatic Neck: Supple Cardiovascular: Regular rate, Normal S1 Lungs: Clear to auscultation Assessment/Plan - Problem List Patient Problems: All Active Problems GERD (gastroesophageal reflux disease) (Acute) K21.9 Hypotension (Acute) Major depressive disorder (Acute) F32.9 Multiple sclerosis (Acute) G35 Osteoarthritis (Acute) M19.90 DISRUPTIVE AND AGITATED BEHAVIOR (Acute) - Plan Plan: as per psych will monitor Nutritional Asmnt/Malnutr-PDOC - Dietary Evaluation Malnutrition Findings (Please click <Entered> for more info): Nutritional Asmnt/Malnutrition Start: 06/06/17 18: 49 Text: Status: Complete Freq: Document 06/06/17 18:49 LCHENG (Rec: 06/06/17 18:52 LCHENG [email or web address]) Nutritional Asmnt/Malnutrition Patient General Information Nutritional Screening Moderate Risk Diagnosis depression Pertinent Medical Hx/Surgical Hx OA, sclerosis Subjective Information Pt seen sleeping at the time of visit. Per notes, PO itnake 75%. Current Diet Order/ Nutrition Support [facility] soft chopped Pertinent Medications reviewed Pertinent Labs 06/05 glucose 124 Nutritional Hx/Data Height 1.68 m Height (Calculated Centimeters) 167.6 Current Weight (lbs) 95.708 kg Weight (Calculated Kilograms) 95.7 Weight (Calculated Grams) 89541.0 [place] Body Weight 142 % [place] Body Weight 149 Body Mass Index (BMI) 34.0 Weight Status Obese GI Symptoms GI Symptoms None Last BM 06/04 Difficult in: None Skin Integrity/Comment: intact Current %PO Good (75-100%) Estimated Nutritional Goals BEE in Kcals: Adj wt of IBW Calories/Kcals/Kg 25-30 Kcals Calculated 5326-8579 adj wt 72kg Protein: Adj wt of IBW Protein g/k Protein Calculated 72 Fluid: ml 4267-0365 Nutritional Problem No current Nutrition Prob Problem N/A Malnutrition Alert Protein-Calorie Malnutrition N/A Is there a minimum of two criteria No selected? Query Text:Check all the applicable criteria. A minimum of two criteria are recommended for diagnosis of either severe or non-severe malnutrition. Intervention/Recommendation Comments 1. Continue with current diet as ordered. 2. Monitor PO intake, wt, labs and skin integrity 3. F/U as low risk in 7 days, 06/13 Expected Outcomes/Goals Expected Outcomes/Goals 1. PO intake to meet at least 75% of nutritional needs. 2. Wt stability, skin to remain intact, labs to approach WNL.
--- NOTE | 2017-06-07 13:24 | Discharge Summary ---
DATE OF DISCHARGE: 06/07/2017 DATE OF DISCHARGE: 06/07/2017. PHYSICIAN: Dr. Quintanilla. FINAL DIAGNOSES AND PRIMARY DIAGNOSES: Depressive mood disorder, moderate to severe, with psychotic features. REASON FOR HOSPITALIZATION: The patient was admitted to the hospital because of increased depression as well as agitation, difficulty following any instructions. HOSPITAL COURSE: The patient continued to be agitated and restless. Also, continued to be in irritable mood and withdrawn. The patient was given Abilify that was increased to 50 mg every day. Also, continued to take Lexapro in a dose of 20 mg every day. Gradually, the patient's affect was brighter. The patient was less agitated and less irritable. Also, was cooperative with his treatment and compliant with taking his medications and the patient was discharged from the hospital. Physical exam of the patient showed no major medical problems. AFTER DISCHARGE PLANS: The patient discharged from the hospital with plan to continue outpatient followup. EXPECTED OUTCOME AFTER DISCHARGE: Fair if the patient continued to take his psychotropic medications. [facility]# [id number]
--- NOTE | 2017-06-07 15:31 | Progress Notes ---
DATE: SUBJECTIVE: Chart reviewed and the patient interviewed. Also discussed the patient's condition with the staff and reviewed records and labs. The patient is still acting bizarre and he is still throwing himself suddenly off the chair to the floor in a manipulative way. The patient also is demanding and he threw himself on the floor when his demand is not met. Also, is still easily agitated and in irritable mood. Also, part of his manipulation, the patient sometimes ask for "lethal injection" when his demand is not met. Otherwise, the patient is compliant with taking his medications with no side effects of medications. ASSESSMENT: The patient is still psychotic. TREATMENT PLAN: We will continue to monitor his behavior and his condition closely and we will continue to work on his manipulation and acting out behavior. REASON FOR CONTINUED HOSPITAL STAY: The patient is still psychotic and needs close monitoring. ESTIMATED LENGTH OF STAY: 2-4 days. JOB# [id number]
--- NOTE | 2017-06-08 20:49 | Internal Medicine Prog Note ---
Internal Medicine Subjective - Subjective Service Date: 06/08/17 Patient seen and examined:: with staff Patient is:: awake Per staff patient has:: tolerating meds Internal Medicine Objective - Results Result Diagrams: 06/05/17 08:30 06/05/17 08:30 Recent Labs: Laboratory Last Values WBC 7.3 Th/cmm (4.8-10.8) D 06/05/17 08:30 RBC 5.53 Mil/cmm (4.30-5.70) 06/05/17 08:30 Hgb 15.0 gm/dL (12-16) 06/05/17 08:30 Hct 46.6 % (41.0-60) 06/05/17 08:30 MCV 84.2 fl (80-99) 06/05/17 08:30 MCH 27.1 pg (26.0-30.0) 06/05/17 08:30 MCHC Differential 32.2 pg (28.0-36.0) 06/05/17 08:30 RDW 13.6 % (11.5-20.0) 06/05/17 08:30 Plt Count 312 Th/cmm (150-400) 06/05/17 08:30 MPV 8.8 fl 06/05/17 08:30 Neutrophils % 63.3 % (40.0-80.0) 06/05/17 08:30 Lymphocytes % 28.6 % (20.0-50.0) 06/05/17 08:30 Monocytes % 4.6 % (2.0-10.0) 06/05/17 08:30 Eosinophils % 3.5 % (0.0-5.0) 06/05/17 08:30 Basophils % 0.0 % (0.0-2.0) 06/05/17 08:30 Sodium 137 mEq/L (136-145) 06/05/17 08:30 Potassium 4.1 mEq/L (3.5-5.1) 06/05/17 08:30 Chloride 103 mEq/L (98-107) 06/05/17 08:30 Carbon Dioxide 29.8 mEq/L (21.0-31.0) 06/05/17 08:30 Anion Gap 8.3 (7.0-16.0) 06/05/17 08:30 BUN 17 mg/dL (7-25) 06/05/17 08:30 Creatinine 0.9 mg/dL (0.7-1.3) 06/05/17 08:30 Est GFR ( Amer) > 60.0 ml/min (>90) 06/05/17 08:30 Est GFR (Non-Af Amer) > 60.0 ml/min 06/05/17 08:30 BUN/Creatinine Ratio 18.9 06/05/17 08:30 Glucose 124 mg/dL (70-105) H 06/05/17 08:30 Calcium 9.3 mg/dL (8.6-10.3) 06/05/17 08:30 - Physical Exam Vitals and I&O: Vital Signs Temp 98.2 F 06/08/17 20:10 Pulse 103 06/08/17 20:10 Resp 20 06/08/17 20:10 BP 113/81 06/08/17 20:10 Pulse Ox 98 06/08/17 20:10 Intake & Output 06/08/17 06/08/17 06/09/17 06:59 18:59 06:59 Intake Total 1200 480 Balance 1200 480 Intake: Oral 1200 480 Other: # Voids 3 2 Active Medications: Current Medications Acetaminophen (Tylenol) 650 mg PO Q6H PRN PRN Reason: Pain (Mild) Stop: 08/01/17 09:48 Aripiprazole (Abilify) 15 mg PO DAILY [facility] PRN Reason: Protocol Stop: 08/01/17 08:59 Last Admin: 06/08/17 08:50 Dose: 15 mg Aspirin (Ecotrin) 81 mg PO DAILY [facility] Stop: 08/01/17 08:59 Last Admin: 06/08/17 08:49 Dose: 81 mg Baclofen (Lioresal) 10 mg PO Q6H PRN PRN Reason: MUSCLE SPASMS Stop: 07/31/17 20:36 Enalapril Maleate (Vasotec) 20 mg PO DAILY [facility] Stop: 08/01/17 08:59 Last Admin: 06/08/17 08:49 Dose: 20 mg Escitalopram Oxalate (Lexapro) 20 mg PO DAILY [facility] PRN Reason: Protocol Stop: 08/01/17 08:59 Last Admin: 06/08/17 08:50 Dose: 20 mg Famotidine (Pepcid) 20 mg PO DAILY [facility] Stop: 08/01/17 08:59 Last Admin: 06/08/17 08:50 Dose: 20 mg Naproxen (Naprosyn) 250 mg PO BID PRN PRN Reason: Severe Pain Stop: 07/31/17 20:36 Trazodone HCl (Desyrel) 100 mg PO HS [facility] PRN Reason: Protocol Stop: 07/31/17 20:59 Last Admin: 06/08/17 20:15 Dose: 100 mg General: alert HEENT: NC/AT, PERRLA Neck: Supple Lungs: CTAB Cardiovascular: RRR, Normal S1, Normal S2, without murmur Abdomen: soft, non-tender, non-distended, positive bowel sound Neurological: alert Internal Medicine Assmt/Plan - Assessment Assessment: GERD (gastroesophageal reflux disease) (Acute) K21.9 Major depressive disorder (Acute) F32.9 Multiple sclerosis (Acute) G35 Osteoarthritis (Acute) M19.90 DISRUPTIVE AND AGITATED BEHAVIOR (Acute) - Plan Plan: safety precautions continue current plan of care Nutritional Asmnt/Malnutr-PDOC - Dietary Evaluation Malnutrition Findings (Please click <Entered> for more info): Nutritional Asmnt/Malnutrition Start: 06/06/17 18: 49 Text: Status: Complete Freq: Document 06/06/17 18:49 RIRI (Rec: 06/06/17 18:52 RIRI [email or web address]) Nutritional Asmnt/Malnutrition Patient General Information Nutritional Screening Moderate Risk Diagnosis depression Pertinent Medical Hx/Surgical Hx OA, sclerosis Subjective Information Pt seen sleeping at the time of visit. Per notes, PO itnake 75%. Current Diet Order/ Nutrition Support [facility] soft chopped Pertinent Medications reviewed Pertinent Labs 06/05 glucose 124 Nutritional Hx/Data Height 5 ft 6 in Height (Calculated Centimeters) 167.6 Current Weight (lbs) 211 lb Weight (Calculated Kilograms) 95.7 Weight (Calculated Grams) 37598.0 [place] Body Weight 142 % [place] Body Weight 149 Body Mass Index (BMI) 34.0 Weight Status Obese GI Symptoms GI Symptoms None Last BM 06/04 Difficult in: None Skin Integrity/Comment: intact Current %PO Good (75-100%) Estimated Nutritional Goals BEE in Kcals: Adj wt of IBW Calories/Kcals/Kg 25-30 Kcals Calculated 9787-9566 adj wt 72kg Protein: Adj wt of IBW Protein g/k Protein Calculated 72 Fluid: ml 4408-6669 Nutritional Problem No current Nutrition Prob Problem N/A Malnutrition Alert Protein-Calorie Malnutrition N/A Is there a minimum of two criteria No selected? Query Text:Check all the applicable criteria. A minimum of two criteria are recommended for diagnosis of either severe or non-severe malnutrition. Intervention/Recommendation Comments 1. Continue with current diet as ordered. 2. Monitor PO intake, wt, labs and skin integrity 3. F/U as low risk in 7 days, 06/13 Expected Outcomes/Goals Expected Outcomes/Goals 1. PO intake to meet at least 75% of nutritional needs. 2. Wt stability, skin to remain intact, labs to approach WNL.
--- NOTE | 2017-06-09 18:39 | Progress Notes ---
DATE: 06/09/2017 The patient was seen, chart reviewed. Discussed with staff. The patient was supposed to be discharged yesterday; however, this was extended due to placement following through for unknown reason. The patient has been cooperative, redirectable and compliant with all medications. PLAN: The patient will follow with child welfare caseworker regarding the patient's placement on discharge. We will continue to monitor the patient's progress and titrate medications as needed. [facility]# [id number]
--- NOTE | 2017-06-10 11:19 | General Progress Note ---
Subjective - Review of Systems Events since last encounter: patient cooperative compliant with meds in no distress placement planning Objective - Results Result Diagrams: 06/05/17 08:30 06/05/17 08:30 Recent Labs: Laboratory Last Values WBC 7.3 Th/cmm (4.8-10.8) D 06/05/17 08:30 RBC 5.53 Mil/cmm (4.30-5.70) 06/05/17 08:30 Hgb 15.0 gm/dL (12-16) 06/05/17 08:30 Hct 46.6 % (41.0-60) 06/05/17 08:30 MCV 84.2 fl (80-99) 06/05/17 08:30 MCH 27.1 pg (26.0-30.0) 06/05/17 08:30 MCHC Differential 32.2 pg (28.0-36.0) 06/05/17 08:30 RDW 13.6 % (11.5-20.0) 06/05/17 08:30 Plt Count 312 Th/cmm (150-400) 06/05/17 08:30 MPV 8.8 fl 06/05/17 08:30 Neutrophils % 63.3 % (40.0-80.0) 06/05/17 08:30 Lymphocytes % 28.6 % (20.0-50.0) 06/05/17 08:30 Monocytes % 4.6 % (2.0-10.0) 06/05/17 08:30 Eosinophils % 3.5 % (0.0-5.0) 06/05/17 08:30 Basophils % 0.0 % (0.0-2.0) 06/05/17 08:30 Sodium 137 mEq/L (136-145) 06/05/17 08:30 Potassium 4.1 mEq/L (3.5-5.1) 06/05/17 08:30 Chloride 103 mEq/L (98-107) 06/05/17 08:30 Carbon Dioxide 29.8 mEq/L (21.0-31.0) 06/05/17 08:30 Anion Gap 8.3 (7.0-16.0) 06/05/17 08:30 BUN 17 mg/dL (7-25) 06/05/17 08:30 Creatinine 0.9 mg/dL (0.7-1.3) 06/05/17 08:30 Est GFR ( Amer) > 60.0 ml/min (>90) 06/05/17 08:30 Est GFR (Non-Af Amer) > 60.0 ml/min 06/05/17 08:30 BUN/Creatinine Ratio 18.9 06/05/17 08:30 Glucose 124 mg/dL (70-105) H 06/05/17 08:30 Calcium 9.3 mg/dL (8.6-10.3) 06/05/17 08:30 - Physical Exam Vitals and I&O: Vital Signs Temp 98.6 F 06/10/17 06:47 Pulse 92 06/10/17 08:59 Resp 20 06/10/17 06:47 BP 136/78 06/10/17 08:59 Pulse Ox 97 06/10/17 06:47 Intake & Output 06/09/17 06/10/17 06/10/17 18:59 06:59 18:59 Intake Total 1200 120 Balance 1200 120 Intake: Oral 1200 120 Other: # Voids 3 3 # Bowel Movements 1 Active Medications: Current Medications Acetaminophen (Tylenol) 650 mg PO Q6H PRN PRN Reason: Pain (Mild) Stop: 08/01/17 09:48 Aripiprazole (Abilify) 15 mg PO DAILY [facility] PRN Reason: Protocol Stop: 08/01/17 08:59 Last Admin: 06/10/17 08:59 Dose: 15 mg Aspirin (Ecotrin) 81 mg PO DAILY [facility] Stop: 08/01/17 08:59 Last Admin: 06/10/17 08:59 Dose: 81 mg Baclofen (Lioresal) 10 mg PO Q6H PRN PRN Reason: MUSCLE SPASMS Stop: 07/31/17 20:36 Enalapril Maleate (Vasotec) 20 mg PO DAILY [facility] Stop: 08/01/17 08:59 Last Admin: 06/10/17 08:59 Dose: 20 mg Escitalopram Oxalate (Lexapro) 20 mg PO DAILY [facility] PRN Reason: Protocol Stop: 08/01/17 08:59 Last Admin: 06/10/17 08:58 Dose: 20 mg Famotidine (Pepcid) 20 mg PO DAILY [facility] Stop: 08/01/17 08:59 Last Admin: 06/10/17 08:59 Dose: 20 mg Naproxen (Naprosyn) 250 mg PO BID PRN PRN Reason: Severe Pain Stop: 07/31/17 20:36 Trazodone HCl (Desyrel) 100 mg PO HS [facility] PRN Reason: Protocol Stop: 07/31/17 20:59 Last Admin: 06/09/17 20:59 Dose: 100 mg General: No acute distress HEENT: Atraumatic Neck: Supple Cardiovascular: Regular rate, Normal S1 Lungs: Clear to auscultation Assessment/Plan - Problem List Patient Problems: All Active Problems GERD (gastroesophageal reflux disease) (Acute) K21.9 Hypotension (Acute) Major depressive disorder (Acute) F32.9 Multiple sclerosis (Acute) G35 Osteoarthritis (Acute) M19.90 DISRUPTIVE AND AGITATED BEHAVIOR (Acute) - Plan Plan: dc planning Nutritional Asmnt/Malnutr-PDOC - Dietary Evaluation Malnutrition Findings (Please click <Entered> for more info): Nutritional Asmnt/Malnutrition Start: 06/06/17 18: 49 Text: Status: Complete Freq: Document 06/06/17 18:49 LCHENG (Rec: 06/06/17 18:52 LCHENG [email or web address]) Nutritional Asmnt/Malnutrition Patient General Information Nutritional Screening Moderate Risk Diagnosis depression Pertinent Medical Hx/Surgical Hx OA, sclerosis Subjective Information Pt seen sleeping at the time of visit. Per notes, PO itnake 75%. Current Diet Order/ Nutrition Support [facility] soft chopped Pertinent Medications reviewed Pertinent Labs 06/05 glucose 124 Nutritional Hx/Data Height 1.68 m Height (Calculated Centimeters) 167.6 Current Weight (lbs) 95.708 kg Weight (Calculated Kilograms) 95.7 Weight (Calculated Grams) 40252.0 [place] Body Weight 142 % [place] Body Weight 149 Body Mass Index (BMI) 34.0 Weight Status Obese GI Symptoms GI Symptoms None Last BM 06/04 Difficult in: None Skin Integrity/Comment: intact Current %PO Good (75-100%) Estimated Nutritional Goals BEE in Kcals: Adj wt of IBW Calories/Kcals/Kg 25-30 Kcals Calculated 3899-5190 adj wt 72kg Protein: Adj wt of IBW Protein g/k Protein Calculated 72 Fluid: ml 1263-9059 Nutritional Problem No current Nutrition Prob Problem N/A Malnutrition Alert Protein-Calorie Malnutrition N/A Is there a minimum of two criteria No selected? Query Text:Check all the applicable criteria. A minimum of two criteria are recommended for diagnosis of either severe or non-severe malnutrition. Intervention/Recommendation Comments 1. Continue with current diet as ordered. 2. Monitor PO intake, wt, labs and skin integrity 3. F/U as low risk in 7 days, 06/13 Expected Outcomes/Goals Expected Outcomes/Goals 1. PO intake to meet at least 75% of nutritional needs. 2. Wt stability, skin to remain intact, labs to approach WNL.
--- NOTE | 2017-06-10 21:40 | Progress Notes ---
DATE: The patient was seen, chart reviewed. Discussed with staff. The patient is currently cooperative, denying any suicidal or homicidal ideations, generally responsive to redirections and has been compliant with medications. PLAN: We will continue to follow up with bottle caser regarding the patient's placement on discharge. JOB# [id number]
--- NOTE | 2017-06-11 12:45 | General Progress Note ---
Subjective - Review of Systems Events since last encounter: compliant with meds in no distress dc planning Objective - Results Result Diagrams: 06/05/17 08:30 06/05/17 08:30 Recent Labs: Laboratory Last Values WBC 7.3 Th/cmm (4.8-10.8) D 06/05/17 08:30 RBC 5.53 Mil/cmm (4.30-5.70) 06/05/17 08:30 Hgb 15.0 gm/dL (12-16) 06/05/17 08:30 Hct 46.6 % (41.0-60) 06/05/17 08:30 MCV 84.2 fl (80-99) 06/05/17 08:30 MCH 27.1 pg (26.0-30.0) 06/05/17 08:30 MCHC Differential 32.2 pg (28.0-36.0) 06/05/17 08:30 RDW 13.6 % (11.5-20.0) 06/05/17 08:30 Plt Count 312 Th/cmm (150-400) 06/05/17 08:30 MPV 8.8 fl 06/05/17 08:30 Neutrophils % 63.3 % (40.0-80.0) 06/05/17 08:30 Lymphocytes % 28.6 % (20.0-50.0) 06/05/17 08:30 Monocytes % 4.6 % (2.0-10.0) 06/05/17 08:30 Eosinophils % 3.5 % (0.0-5.0) 06/05/17 08:30 Basophils % 0.0 % (0.0-2.0) 06/05/17 08:30 Sodium 137 mEq/L (136-145) 06/05/17 08:30 Potassium 4.1 mEq/L (3.5-5.1) 06/05/17 08:30 Chloride 103 mEq/L (98-107) 06/05/17 08:30 Carbon Dioxide 29.8 mEq/L (21.0-31.0) 06/05/17 08:30 Anion Gap 8.3 (7.0-16.0) 06/05/17 08:30 BUN 17 mg/dL (7-25) 06/05/17 08:30 Creatinine 0.9 mg/dL (0.7-1.3) 06/05/17 08:30 Est GFR ( Amer) > 60.0 ml/min (>90) 06/05/17 08:30 Est GFR (Non-Af Amer) > 60.0 ml/min 06/05/17 08:30 BUN/Creatinine Ratio 18.9 06/05/17 08:30 Glucose 124 mg/dL (70-105) H 06/05/17 08:30 Calcium 9.3 mg/dL (8.6-10.3) 06/05/17 08:30 - Physical Exam Vitals and I&O: Vital Signs Temp 97.8 F 06/11/17 05:52 Pulse 81 06/11/17 11:10 Resp 20 06/11/17 11:10 BP 129/73 06/11/17 08:08 Pulse Ox 97 06/11/17 05:52 Intake & Output 06/10/17 06/11/17 06/11/17 18:59 06:59 18:59 Intake Total 900 120 Balance 900 120 Intake: Oral 900 120 Other: # Voids 4 3 # Bowel Movements 1 Active Medications: Current Medications Acetaminophen (Tylenol) 650 mg PO Q6H PRN PRN Reason: Pain (Mild) Stop: 08/01/17 09:48 Aripiprazole (Abilify) 15 mg PO DAILY [facility] PRN Reason: Protocol Stop: 08/01/17 08:59 Last Admin: 06/11/17 08:08 Dose: 15 mg Aspirin (Ecotrin) 81 mg PO DAILY [facility] Stop: 08/01/17 08:59 Last Admin: 06/11/17 08:08 Dose: 81 mg Baclofen (Lioresal) 10 mg PO Q6H PRN PRN Reason: MUSCLE SPASMS Stop: 07/31/17 20:36 Enalapril Maleate (Vasotec) 20 mg PO DAILY [facility] Stop: 08/01/17 08:59 Last Admin: 06/11/17 08:08 Dose: 20 mg Escitalopram Oxalate (Lexapro) 20 mg PO DAILY [facility] PRN Reason: Protocol Stop: 08/01/17 08:59 Last Admin: 06/11/17 08:08 Dose: 20 mg Famotidine (Pepcid) 20 mg PO DAILY [facility] Stop: 08/01/17 08:59 Last Admin: 06/11/17 08:08 Dose: 20 mg Naproxen (Naprosyn) 250 mg PO BID PRN PRN Reason: Severe Pain Stop: 07/31/17 20:36 Trazodone HCl (Desyrel) 100 mg PO HS [facility] PRN Reason: Protocol Stop: 07/31/17 20:59 Last Admin: 06/10/17 20:20 Dose: 100 mg General: No acute distress HEENT: Atraumatic Neck: Supple Cardiovascular: Regular rate, Normal S1 Lungs: Clear to auscultation Assessment/Plan - Problem List Patient Problems: All Active Problems GERD (gastroesophageal reflux disease) (Acute) K21.9 Hypotension (Acute) Major depressive disorder (Acute) F32.9 Multiple sclerosis (Acute) G35 Osteoarthritis (Acute) M19.90 DISRUPTIVE AND AGITATED BEHAVIOR (Acute) - Plan Plan: dc planning Nutritional Asmnt/Malnutr-PDOC - Dietary Evaluation Malnutrition Findings (Please click <Entered> for more info): Nutritional Asmnt/Malnutrition Start: 06/06/17 18: 49 Text: Status: Complete Freq: Document 06/06/17 18:49 LCHENG (Rec: 06/06/17 18:52 LCHENG [email or web address]) Nutritional Asmnt/Malnutrition Patient General Information Nutritional Screening Moderate Risk Diagnosis depression Pertinent Medical Hx/Surgical Hx OA, sclerosis Subjective Information Pt seen sleeping at the time of visit. Per notes, PO itnake 75%. Current Diet Order/ Nutrition Support [facility] soft chopped Pertinent Medications reviewed Pertinent Labs 06/05 glucose 124 Nutritional Hx/Data Height 1.68 m Height (Calculated Centimeters) 167.6 Current Weight (lbs) 95.708 kg Weight (Calculated Kilograms) 95.7 Weight (Calculated Grams) 30321.0 [place] Body Weight 142 % [place] Body Weight 149 Body Mass Index (BMI) 34.0 Weight Status Obese GI Symptoms GI Symptoms None Last BM 06/04 Difficult in: None Skin Integrity/Comment: intact Current %PO Good (75-100%) Estimated Nutritional Goals BEE in Kcals: Adj wt of IBW Calories/Kcals/Kg 25-30 Kcals Calculated 8180-7004 adj wt 72kg Protein: Adj wt of IBW Protein g/k Protein Calculated 72 Fluid: ml 0806-1861 Nutritional Problem No current Nutrition Prob Problem N/A Malnutrition Alert Protein-Calorie Malnutrition N/A Is there a minimum of two criteria No selected? Query Text:Check all the applicable criteria. A minimum of two criteria are recommended for diagnosis of either severe or non-severe malnutrition. Intervention/Recommendation Comments 1. Continue with current diet as ordered. 2. Monitor PO intake, wt, labs and skin integrity 3. F/U as low risk in 7 days, 06/13 Expected Outcomes/Goals Expected Outcomes/Goals 1. PO intake to meet at least 75% of nutritional needs. 2. Wt stability, skin to remain intact, labs to approach WNL.
--- NOTE | 2017-06-11 19:59 | Progress Notes ---
DATE: 06/11/2017 Case was discussed with staff of the patient, reviewed records. This is a well-known case to me as I have seen him in a consult 06/01/2017. He was transferred to this unit the same day. He was disruptive and aggressive. He was a poor historian, rambling at times. He is more cooperative, but still depressed, continues to be unpredictable and impulsive, needing redirection. No side effects to the medication, no sedation, no nausea. He is on Lexapro that was increased to 20 mg a day and trazodone 100 mg at bedtime. He is also on Abilify that was initiated by Dr. Quintanilla and increased to 50 mg daily. No extrapyramidal symptoms. We will continue to work with the patient in group therapy, milieu therapy, adjust medications as needed. JOB# [id number]
--- NOTE | 2017-06-12 10:51 | Progress Notes ---
DATE: 06/11/2017 SUBJECTIVE: The patient was seen in the dining area, watching television with other staff. The patient appears to be guarded, easily gets upset and agitated. Otherwise, appears to be comfortable, in no acute distress. OBJECTIVE: VITAL SIGNS: Temperature 97.8, heart rate of 81, respirations 20, blood pressure ____ 97% on room air. HEENT: Head is atraumatic and normocephalic. Eyes: Bilateral conjunctivae are clear. Bilateral pupils are equally round and reactive. NECK: Supple. No JVD. CARDIOVASCULAR: S1 and S2, without murmur. PULMONARY: Clear to auscultation. GASTROINTESTINAL: Soft and nontender without guarding. Positive bowel sounds. MUSCULOSKELETAL: No clubbing, no cyanosis noted. ASSESSMENT: 1. Major depressive disorder. 2. Rule out bipolar disorder. 3. Multiple sclerosis. 4. Osteoarthritis. 5. Gastroesophageal reflux disease. PLAN: We will keep the patient in the Inpatient Psychiatric Unit. We will follow up with a psychiatrist to monitor the patient's condition and behavior. Treatment plans were discussed with the patient's nurse. Treatment plans were discussed with Dr. Ruiz. [facility]# [id number]
--- NOTE | 2017-06-12 17:05 | Progress Notes ---
DATE: 06/12/2017 Case was discussed with staff of the patient's records. The patient has been more cooperative. Continues to be depressed, unpredictable, and impulsive. He is compliant with the medication with no side effects. No sedation, no nausea, no extrapyramidal symptoms. Continues to have poor insight and working on discharge plan. I will continue to work with the patient in group therapy, milieu therapy, and adjust the medication as needed. JOB# [id number]
--- NOTE | 2017-06-12 17:13 | Internal Medicine Prog Note ---
Internal Medicine Subjective - Subjective Service Date: 06/12/17 Patient is:: awake Per staff patient has:: tolerating meds Internal Medicine Objective - Results Result Diagrams: 06/05/17 08:30 06/05/17 08:30 Recent Labs: Laboratory Last Values WBC 7.3 Th/cmm (4.8-10.8) D 06/05/17 08:30 RBC 5.53 Mil/cmm (4.30-5.70) 06/05/17 08:30 Hgb 15.0 gm/dL (12-16) 06/05/17 08:30 Hct 46.6 % (41.0-60) 06/05/17 08:30 MCV 84.2 fl (80-99) 06/05/17 08:30 MCH 27.1 pg (26.0-30.0) 06/05/17 08:30 MCHC Differential 32.2 pg (28.0-36.0) 06/05/17 08:30 RDW 13.6 % (11.5-20.0) 06/05/17 08:30 Plt Count 312 Th/cmm (150-400) 06/05/17 08:30 MPV 8.8 fl 06/05/17 08:30 Neutrophils % 63.3 % (40.0-80.0) 06/05/17 08:30 Lymphocytes % 28.6 % (20.0-50.0) 06/05/17 08:30 Monocytes % 4.6 % (2.0-10.0) 06/05/17 08:30 Eosinophils % 3.5 % (0.0-5.0) 06/05/17:30 Basophils % 0.0 % (0.0-2.0) 06/05/17 08:30 Sodium 137 mEq/L (136-145) 06/05/17 08:30 Potassium 4.1 mEq/L (3.5-5.1) 06/05/17 08:30 Chloride 103 mEq/L (98-107) 06/05/17 08:30 Carbon Dioxide 29.8 mEq/L (21.0-31.0) 06/05/17 08:30 Anion Gap 8.3 (7.0-16.0) 06/05/17 08:30 BUN 17 mg/dL (7-25) 06/05/17 08:30 Creatinine 0.9 mg/dL (0.7-1.3) 06/05/17 08:30 Est GFR ( Amer) > 60.0 ml/min (>90) 06/05/17 08:30 Est GFR (Non-Af Amer) > 60.0 ml/min 06/05/17 08:30 BUN/Creatinine Ratio 18.9 06/05/17 08:30 Glucose 124 mg/dL (70-105) H 06/05/17 08:30 Calcium 9.3 mg/dL (8.6-10.3) 06/05/17 08:30 - Physical Exam Vitals and I&O: Vital Signs Temp 98.5 F 06/12/17 15:45 Pulse 95 06/12/17 15:45 Resp 18 06/12/17 15:45 BP 125/92 06/12/17 15:45 Pulse Ox 94 06/12/17 15:45 Intake & Output 06/11/17 06/12/17 06/12/17 18:59 06:59 18:59 Intake Total 1200 360 Balance 1200 360 Intake: Oral 1200 360 Other: # Voids 3 2 # Bowel Movements 1 0 Stool Characteristics Soft Soft Formed Active Medications: Current Medications Acetaminophen (Tylenol) 650 mg PO Q6H PRN PRN Reason: Pain (Mild) Stop: 08/01/17 09:48 Aripiprazole (Abilify) 15 mg PO DAILY [facility] PRN Reason: Protocol Stop: 08/01/17 08:59 Last Admin: 06/12/17 09:37 Dose: 15 mg Aspirin (Ecotrin) 81 mg PO DAILY [facility] Stop: 08/01/17 08:59 Last Admin: 06/12/17 09:37 Dose: 81 mg Baclofen (Lioresal) 10 mg PO Q6H PRN PRN Reason: MUSCLE SPASMS Stop: 07/31/17 20:36 Enalapril Maleate (Vasotec) 20 mg PO DAILY [facility] Stop: 08/01/17 08:59 Last Admin: 06/12/17 09:36 Dose: 20 mg Escitalopram Oxalate (Lexapro) 20 mg PO DAILY [facility] PRN Reason: Protocol Stop: 08/01/17 08:59 Last Admin: 06/12/17 09:37 Dose: 20 mg Famotidine (Pepcid) 20 mg PO DAILY [facility] Stop: 08/01/17 08:59 Last Admin: 06/12/17 09:37 Dose: 20 mg Naproxen (Naprosyn) 250 mg PO BID PRN PRN Reason: Severe Pain Stop: 07/31/17 20:36 Trazodone HCl (Desyrel) 100 mg PO HS [facility] PRN Reason: Protocol Stop: 07/31/17 20:59 Last Admin: 06/11/17 20:10 Dose: 100 mg General: alert HEENT: NC/AT, PERRLA Neck: Supple Lungs: CTAB Cardiovascular: RRR, Normal S1, Normal S2, without murmur Abdomen: soft, non-tender, non-distended, positive bowel sound Neurological: alert Internal Medicine Assmt/Plan - Assessment Assessment: GERD (gastroesophageal reflux disease) (Acute) K21.9 Major depressive disorder (Acute) F32.9 Multiple sclerosis (Acute) G35 Osteoarthritis (Acute) M19.90 DISRUPTIVE AND AGITATED BEHAVIOR (Acute) - Plan Plan: safety precautions continue current plan of care Nutritional Asmnt/Malnutr-PDOC - Dietary Evaluation Malnutrition Findings (Please click <Entered> for more info): Nutritional Asmnt/Malnutrition Start: 06/06/17 18: 49 Text: Status: Complete Freq: Document 06/06/17 18:49 RIRI (Rec: 06/06/17 18:52 RIRI [email or web address]) Nutritional Asmnt/Malnutrition Patient General Information Nutritional Screening Moderate Risk Diagnosis depression Pertinent Medical Hx/Surgical Hx OA, sclerosis Subjective Information Pt seen sleeping at the time of visit. Per notes, PO itnake 75%. Current Diet Order/ Nutrition Support [facility] soft chopped Pertinent Medications reviewed Pertinent Labs 06/05 glucose 124 Nutritional Hx/Data Height 5 ft 6 in Height (Calculated Centimeters) 167.6 Current Weight (lbs) 211 lb Weight (Calculated Kilograms) 95.7 Weight (Calculated Grams) 24310.0 [place] Body Weight 142 % [place] Body Weight 149 Body Mass Index (BMI) 34.0 Weight Status Obese GI Symptoms GI Symptoms None Last BM 06/04 Difficult in: None Skin Integrity/Comment: intact Current %PO Good (75-100%) Estimated Nutritional Goals BEE in Kcals: Adj wt of IBW Calories/Kcals/Kg 25-30 Kcals Calculated 5648-9643 adj wt 72kg Protein: Adj wt of IBW Protein g/k Protein Calculated 72 Fluid: ml 8970-5526 Nutritional Problem No current Nutrition Prob Problem N/A Malnutrition Alert Protein-Calorie Malnutrition N/A Is there a minimum of two criteria No selected? Query Text:Check all the applicable criteria. A minimum of two criteria are recommended for diagnosis of either severe or non-severe malnutrition. Intervention/Recommendation Comments 1. Continue with current diet as ordered. 2. Monitor PO intake, wt, labs and skin integrity 3. F/U as low risk in 7 days, 06/13 Expected Outcomes/Goals Expected Outcomes/Goals 1. PO intake to meet at least 75% of nutritional needs. 2. Wt stability, skin to remain intact, labs to approach WNL.
--- NOTE | 2017-06-13 11:48 | General Progress Note ---
Subjective - Review of Systems Events since last encounter: awake tolerating meds Objective - Results Result Diagrams: 06/05/17 08:30 06/05/17 08:30 Recent Labs: Laboratory Last Values WBC 7.3 Th/cmm (4.8-10.8) D 06/05/17 08:30 RBC 5.53 Mil/cmm (4.30-5.70) 06/05/17 08:30 Hgb 15.0 gm/dL (12-16) 06/05/17 08:30 Hct 46.6 % (41.0-60) 06/05/17 08:30 MCV 84.2 fl (80-99) 06/05/17 08:30 MCH 27.1 pg (26.0-30.0) 06/05/17 08:30 MCHC Differential 32.2 pg (28.0-36.0) 06/05/17 08:30 RDW 13.6 % (11.5-20.0) 06/05/17 08:30 Plt Count 312 Th/cmm (150-400) 06/05/17 08:30 MPV 8.8 fl 06/05/17 08:30 Neutrophils % 63.3 % (40.0-80.0) 06/05/17 08:30 Lymphocytes % 28.6 % (20.0-50.0) 06/05/17 08:30 Monocytes % 4.6 % (2.0-10.0) 06/05/17 08:30 Eosinophils % 3.5 % (0.0-5.0) 06/05/17:30 Basophils % 0.0 % (0.0-2.0) 06/05/17 08:30 Sodium 137 mEq/L (136-145) 06/05/17 08:30 Potassium 4.1 mEq/L (3.5-5.1) 06/05/17 08:30 Chloride 103 mEq/L (98-107) 06/05/17 08:30 Carbon Dioxide 29.8 mEq/L (21.0-31.0) 06/05/17 08:30 Anion Gap 8.3 (7.0-16.0) 06/05/17 08:30 BUN 17 mg/dL (7-25) 06/05/17 08:30 Creatinine 0.9 mg/dL (0.7-1.3) 06/05/17 08:30 Est GFR ( Amer) > 60.0 ml/min (>90) 06/05/17 08:30 Est GFR (Non-Af Amer) > 60.0 ml/min 06/05/17 08:30 BUN/Creatinine Ratio 18.9 06/05/17 08:30 Glucose 124 mg/dL (70-105) H 06/05/17 08:30 Calcium 9.3 mg/dL (8.6-10.3) 06/05/17 08:30 - Physical Exam Vitals and I&O: Vital Signs Temp 98.9 F 06/13/17 06:01 Pulse 90 06/13/17 10:34 Resp 19 06/13/17 10:34 BP 115/81 06/13/17 08:47 Pulse Ox 94 06/13/17 06:01 Intake & Output 06/12/17 06/13/17 06/13/17 18:59 06:59 18:59 Intake Total 1000 300 Balance 1000 300 Intake: Oral 1000 300 Other: # Voids 4 1 # Bowel Movements 1 0 Active Medications: Current Medications Acetaminophen (Tylenol) 650 mg PO Q6H PRN PRN Reason: Pain (Mild) Stop: 08/01/17 09:48 Aripiprazole (Abilify) 15 mg PO DAILY [facility] PRN Reason: Protocol Stop: 08/01/17 08:59 Last Admin: 06/13/17 08:46 Dose: 15 mg Aspirin (Ecotrin) 81 mg PO DAILY [facility] Stop: 08/01/17 08:59 Last Admin: 06/13/17 08:46 Dose: 81 mg Baclofen (Lioresal) 10 mg PO Q6H PRN PRN Reason: MUSCLE SPASMS Stop: 07/31/17 20:36 Enalapril Maleate (Vasotec) 20 mg PO DAILY [facility] Stop: 08/01/17 08:59 Last Admin: 06/13/17 08:47 Dose: 20 mg Escitalopram Oxalate (Lexapro) 20 mg PO DAILY [facility] PRN Reason: Protocol Stop: 08/01/17 08:59 Last Admin: 06/13/17 08:47 Dose: 20 mg Famotidine (Pepcid) 20 mg PO DAILY [facility] Stop: 08/01/17 08:59 Last Admin: 06/13/17 08:46 Dose: 20 mg Naproxen (Naprosyn) 250 mg PO BID PRN PRN Reason: Severe Pain Stop: 07/31/17 20:36 Trazodone HCl (Desyrel) 100 mg PO HS [facility] PRN Reason: Protocol Stop: 07/31/17 20:59 Last Admin: 06/12/17 20:32 Dose: 100 mg General: No acute distress HEENT: Atraumatic Neck: Supple Cardiovascular: Regular rate, Normal S1 Lungs: Clear to auscultation Assessment/Plan - Problem List Patient Problems: All Active Problems GERD (gastroesophageal reflux disease) (Acute) K21.9 Hypotension (Acute) Major depressive disorder (Acute) F32.9 Multiple sclerosis (Acute) G35 Osteoarthritis (Acute) M19.90 DISRUPTIVE AND AGITATED BEHAVIOR (Acute) - Plan Plan: dc planning Nutritional Asmnt/Malnutr-PDOC - Dietary Evaluation Malnutrition Findings (Please click <Entered> for more info): Nutritional Asmnt/Malnutrition Start: 06/06/17 18: 49 Text: Status: Complete Freq: Document 06/06/17 18:49 LCHENG (Rec: 06/06/17 18:52 LCHENG [email or web address]) Nutritional Asmnt/Malnutrition Patient General Information Nutritional Screening Moderate Risk Diagnosis depression Pertinent Medical Hx/Surgical Hx OA, sclerosis Subjective Information Pt seen sleeping at the time of visit. Per notes, PO itnake 75%. Current Diet Order/ Nutrition Support [facility] soft chopped Pertinent Medications reviewed Pertinent Labs 06/05 glucose 124 Nutritional Hx/Data Height 1.68 m Height (Calculated Centimeters) 167.6 Current Weight (lbs) 95.708 kg Weight (Calculated Kilograms) 95.7 Weight (Calculated Grams) 88628.0 [place] Body Weight 142 % [place] Body Weight 149 Body Mass Index (BMI) 34.0 Weight Status Obese GI Symptoms GI Symptoms None Last BM 06/04 Difficult in: None Skin Integrity/Comment: intact Current %PO Good (75-100%) Estimated Nutritional Goals BEE in Kcals: Adj wt of IBW Calories/Kcals/Kg 25-30 Kcals Calculated 4658-2172 adj wt 72kg Protein: Adj wt of IBW Protein g/k Protein Calculated 72 Fluid: ml 4013-7855 Nutritional Problem No current Nutrition Prob Problem N/A Malnutrition Alert Protein-Calorie Malnutrition N/A Is there a minimum of two criteria No selected? Query Text:Check all the applicable criteria. A minimum of two criteria are recommended for diagnosis of either severe or non-severe malnutrition. Intervention/Recommendation Comments 1. Continue with current diet as ordered. 2. Monitor PO intake, wt, labs and skin integrity 3. F/U as low risk in 7 days, 06/13 Expected Outcomes/Goals Expected Outcomes/Goals 1. PO intake to meet at least 75% of nutritional needs. 2. Wt stability, skin to remain intact, labs to approach WNL.
--- NOTE | 2017-06-14 01:24 | Discharge Summary ---
DATE OF DISCHARGE: 06/13/2017 FINAL DIAGNOSIS: Chronic paranoid schizophrenia with acute exacerbation. REASON FOR HOSPITALIZATION: The patient was admitted to the hospital from [facility]. The patient was agitated and demanding and he was throwing himself on the floor and the patient was admitted to the hospital. HOSPITAL COURSE: The patient continued to be agitated and depressed. The patient was asking for " ____ injection." Also, was actively responding to stimuli and the behavior of throwing himself on the floor continues. The patient was monitored closely. Gradually, the patient's affect was brighter. The patient was less agitated and less irritable. The patient showed no major medical problems and the patient was discharged from the hospital. The patient had no major medical problems while on the unit. DISCHARGE ACTIVITY: As tolerated. EXPECTED OUTCOME AFTER DISCHARGE: Fair if the patient continued to take his psychotropic medications and follow up with treatment plans. [facility]# [id number]
== END 2017-06-13 16:20 | DRG 885 ==
LOC: GERO 20:05
PROVIDERS: ADMIT Psychiatry & Neurology Psychiatry; ATTEND Psychiatry & Neurology Psychiatry
DX: F33.2 Major depressive disorder, recurrent severe without psychotic features (principal); F20.0 Paranoid schizophrenia; I95.9 Hypotension, unspecified; G35 Multiple sclerosis; M19.90 Unspecified osteoarthritis, unspecified site; K21.9 Gastro-esophageal reflux disease without esophagitis
CPT/HCPCS: 36415-UA; 80048-TC; 85025-TC